=== PATIENT | male | born 1940 | race African-American/Black ===

== ENCOUNTER → 2016-11-24 | Outpatient (CLI) | payer MEDICARE, MEDICAID ==
[~2016-11-24] MED LIST: ALBU2.5V13 NEB; ALBU4TAB6 PO; D-ME473S8 PO; DIGO250T4 PO; DOCU-272 PO; FERR-63 PO; FURO40TA5 PO; IBUP-1510 PO; IOHEXOL-350 100 ML BOTTLE ONE; LISI10TA5 PO; OMEP20CA10 PO; POT25TAB5 PO; ROFL500T PO; SODIUM CHLORIDE 0.9% 10ML VIAL ONE; TERA5CAP4 PO
== END | disposition home or self-care (01) ==
LOC: CT 09:12
PROVIDERS: ATTEND Internal Medicine Gastroenterology
DX: K21.9 Gastro-esophageal reflux disease without esophagitis (principal); K63.5 Polyp of colon; I51.7 Cardiomegaly; K57.90 Diverticulosis of intestine, part unspecified, without perforation or abscess without bleeding; Z90.49 Acquired absence of other specified parts of digestive tract; Z95.0 Presence of cardiac pacemaker
CPT/HCPCS: 74174; A4216; J7040; Q9967

== ENCOUNTER 2018-08-30 15:46 | Inpatient (IN) | payer MEDICARE, MEDICAID ==
[~2018-08-30] VITALS: Ht 182.9 cm; Wt 97.7 kg
[~2018-08-30 15:46] MED LIST changes: -IBUP-1510 PO; +IBUP-2030 PO; -IOHEXOL-350 100 ML BOTTLE ONE; -SODIUM CHLORIDE 0.9% 10ML VIAL ONE
[2018-08-30] MEDS ORDERED: SODIUM CHLORIDE 0.9% 1,000 ML IV ONE (18:01)
[2018-08-30 18:26] LABS: BASOPHILS % 0.7 % (0.0-2.0); EOSINOPHILS % 2.2 % (0.0-5.0); LYMPHOCYTES % 9.9 % (20.0-50.0); MEAN CORPUSCULAR HEMOGLOBIN 30.1 pg (28.0-32.0); MEAN CORPUSCULAR VOLUME 91.6 fL (80.0-94.0); MEAN PLATELET VOLUME 7.2 fl (7.4-10.4); MONOCYTES % 5.7 % (2.0-8.0); NEUTROPHILS % 81.5 % (40.0-76.0); PLATELET 229 x1000/uL (130-400); RED BLOOD CELL COUNT 2.17 mill/uL (4.7-6.1); RED CELL DISTRIBUTION WIDTH 15.8 % (11.6-14.6)
[2018-08-30 18:30] LABS: CHLORIDE 111 mEq/L (98-107)
[2018-08-30 18:31] LABS: HEMATOCRIT. 19.9 % (42.0-52.0); HEMOGLOBIN. 6.5 g/dL (14.0-18.0)
[2018-08-30 18:32] LABS: INR 1.1; PARTIAL THROMBOPLASTIN TIME 24.4 sec (23.4-31.0); PROTHROMBIN TIME 10.9 sec (9.1-11.1)
[2018-08-30] MEDS ORDERED: PANTOPRAZOLE SODIUM 40 MG/VIAL IV ONE (19:15)
[2018-08-30] MEDS ORDERED: ACETAMINOPHEN 325MG TABLET PO PRN (21:45)
[2018-08-30] MEDS ORDERED: ACETAMINOPHEN WITH CODEINE 300/30MG TABLET PO PRN (21:45)
[2018-08-30] MEDS ORDERED: CLONIDINE 0.1MG TABLET PO PRN (21:45)
[2018-08-30] MEDS ORDERED: EPOETIN ALFA 10000UNITS/ML VIAL SUBCUT ONE ×2 (21:45)
[2018-08-30] MEDS ORDERED: DOCUSATE SODIUM 100MG CAPSULE PO PRN (21:45)
[2018-08-30] MEDS ORDERED: EPOETIN ALFA 10000UNITS/ML VIAL SUBCUT SCH (23:30)
[2018-08-30] MEDS: TERAZOSIN HCL 5MG CAPSULE PO SCH (23:47)
[2018-08-31] VITALS (7 sets, daily range): BP systolic 130–150; BP diastolic 43–85
[2018-08-31 07:08] LABS: BASOPHILS % 0.6 % (0.0-2.0); EOSINOPHILS % 2.7 % (0.0-5.0); HEMATOCRIT. 22.1 % (42.0-52.0); HEMOGLOBIN. 7.4 g/dL (14.0-18.0); LYMPHOCYTES % 8.7 % (20.0-50.0); MEAN CORPUSCULAR HEMOGLOBIN 30.5 pg (28.0-32.0); MEAN CORPUSCULAR VOLUME 90.6 fL (80.0-94.0); MONOCYTES % 6.3 % (2.0-8.0); NEUTROPHILS % 81.7 % (40.0-76.0); PLATELET 234 x1000/uL (130-400); RED BLOOD CELL COUNT 2.44 mill/uL (4.7-6.1); RED CELL DISTRIBUTION WIDTH 15.4 % (11.6-14.6)
[2018-08-31 07:13] LABS: PHOSPHORUS 2.8 mg/dL (2.5-4.9)
[2018-08-31] MEDS ORDERED: ASCORBIC ACID 500 MG TABLET PO SCH (09:00)
[2018-08-31] MEDS ORDERED: LISINOPRIL 10MG TABLET PO SCH ×2 (09:00→11:00)
[2018-08-31] MEDS ORDERED: FERROUS SULFATE 325MG TABLET PO SCH (09:00)
[2018-08-31] MEDS ORDERED: FUROSEMIDE 20MG TABLET PO SCH (09:00)
[2018-08-31] MEDS ORDERED: UMECLIDINIUM BROMIDE 1 INH BLST.W.DEV IH SCH (09:00)
[2018-08-31] MEDS ORDERED: POTASSIUM CHLORIDE 20MEQ/PACKET PO SCH ×2 (09:00→11:00)
[2018-08-31] MEDS ORDERED: FLUTICASONE PROPIONATE 50MCG/SPRAY BOTTLE BOTHNSTRLS SCH (09:00)
[2018-08-31] MEDS ORDERED: FLUTICASONE/VILANTEROL 200-25 BLST.W.DEV ORI SCH (09:00)
[2018-08-31] MEDS: ASCORBIC ACID 500 MG TABLET PO SCH ×2 (12:48→21:31)
[2018-08-31] MEDS: FERROUS SULFATE 325MG TABLET PO SCH ×2 (12:48→18:00)
[2018-08-31] MEDS: FUROSEMIDE 40MG TABLET PO SCH (12:48)
[2018-08-31] MEDS ORDERED: MECL-127 MT (13:48)
[2018-08-31] MEDS ORDERED: VIT1CAPS22 MT (14:05)
[2018-08-31] MEDS ORDERED: ROFL500T MT (14:05)
[2018-08-31] MEDS ORDERED: ALBU4TAB6 MT (14:05)
[2018-08-31] MEDS ORDERED: FLUT1BLS3 IH (14:09)
[2018-08-31] MEDS: FLUTICASONE PROPIONATE 50MCG/SPRAY BOTTLE BOTHNSTRLS SCH (15:01)
[2018-08-31] MEDS: FLUTICASONE/VILANTEROL 200-25 BLST.W.DEV ORI SCH (15:04)
[2018-08-31] MEDS: UMECLIDINIUM BROMIDE 1 INH BLST.W.DEV IH SCH (15:05)
[2018-08-31] MEDS ORDERED: FUROSEMIDE 40MG TABLET PO SCH ×2 (17:00)
[2018-08-31] MEDS ORDERED: DIGOXIN 250MCG TABLET PO SCH ×2 (18:00)
[2018-08-31] MEDS: CELECOXIB 200MG CAPSULE PO SCH (18:00)
[2018-08-31] MEDS: PANTOPRAZOLE SODIUM 40 MG/VIAL IV SCH (18:00)
[2018-08-31] MEDS: TERAZOSIN HCL 5MG CAPSULE PO SCH (22:16)
[2018-09-01] VITALS: BP 154/88
[2018-09-01 01:17] LABS: HEMATOCRIT. 25.6 % (42.0-52.0); HEMOGLOBIN. 8.5 g/dL (14.0-18.0); MEAN CORPUSCULAR HEMOGLOBIN 29.5 pg (28.0-32.0); MEAN CORPUSCULAR VOLUME 89.2 fL (80.0-94.0); MEAN PLATELET VOLUME 8.4 fl (7.4-10.4); PLATELET 237 x1000/uL (130-400); RED BLOOD CELL COUNT 2.86 mill/uL (4.7-6.1); RED CELL DISTRIBUTION WIDTH 17.6 % (11.6-14.6); TOTAL IRON BINDING CAPACITY 279 ug/dL (250-450)
[2018-09-01 02:24] LABS: ATYPICAL LYMPHOCYTES 1
[2018-09-01 02:25] LABS: PLATELET ESTIMATE NORMAL
[2018-09-01 04:00] VITALS: BP 124/80
[2018-09-01] MEDS: CELECOXIB 200MG CAPSULE PO SCH (05:13)
[2018-09-01 07:09] LABS: HEMATOCRIT. 27.6 % (42.0-52.0); MEAN CORPUSCULAR HEMOGLOBIN 29.2 pg (28.0-32.0); MEAN CORPUSCULAR VOLUME 89.5 fL (80.0-94.0); PLATELET 272 x1000/uL (130-400); RED BLOOD CELL COUNT 3.08 mill/uL (4.7-6.1); RED CELL DISTRIBUTION WIDTH 18.3 % (11.6-14.6)
[2018-09-01 08:00] VITALS: BP 145/61
[2018-09-01] MEDS: PANTOPRAZOLE SODIUM 40 MG/VIAL IV SCH (09:13)
[2018-09-01] MEDS: ASCORBIC ACID 500 MG TABLET PO SCH (09:14)
[2018-09-01] MEDS: FERROUS SULFATE 325MG TABLET PO SCH (09:14)
[2018-09-01] MEDS: FUROSEMIDE 40MG TABLET PO SCH (09:14)
[2018-09-01] MEDS: FLUTICASONE PROPIONATE 50MCG/SPRAY BOTTLE BOTHNSTRLS SCH (09:17)
[2018-09-01] MEDS: UMECLIDINIUM BROMIDE 1 INH BLST.W.DEV IH SCH (09:49)
[2018-09-01] MEDS: FLUTICASONE/VILANTEROL 200-25 BLST.W.DEV ORI SCH (09:49)
[2018-09-01 10:27] VITALS: BP 132/60
[2018-09-01] MEDS ORDERED: HALOPERIDOL LACTATE 5MG/ML VIAL IM NR (10:30)
[2018-09-01 14:15] LABS: PLATELET ESTIMATE NORMAL
== END 2018-09-01 11:50 | disposition home or self-care (01) | DRG 378 ==
LOC: ER 15:46 → 8WST 18:43 → EDBEDREQ 18:47 → ENRESERV 08-31 08:54 → ER 08-31 10:47
PROVIDERS: ADMIT Internal Medicine Pulmonary Disease; ATTEND Internal Medicine Pulmonary Disease
PROC: 30233N1 Transfusion of Nonautologous Red Blood Cells into Peripheral Vein, Percutaneous Approach (ICD-10-PCS; principal; 2018-08-30)
DX: K92.2 Gastrointestinal hemorrhage, unspecified (principal); E87.0 Hyperosmolality and hypernatremia; I13.0 Hypertensive heart and chronic kidney disease with heart failure and stage 1 through stage 4 chronic kidney disease, or unspecified chronic kidney disease; I50.32 Chronic diastolic (congestive) heart failure; D50.0 Iron deficiency anemia secondary to blood loss (chronic); I48.2 Chronic atrial fibrillation; J44.9 Chronic obstructive pulmonary disease, unspecified; D12.6 Benign neoplasm of colon, unspecified; G89.29 Other chronic pain; I25.10 Atherosclerotic heart disease of native coronary artery without angina pectoris; J30.1 Allergic rhinitis due to pollen; N28.9 Disorder of kidney and ureter, unspecified; Z87.891 Personal history of nicotine dependence; Z90.49 Acquired absence of other specified parts of digestive tract; Z95.810 Presence of automatic (implantable) cardiac defibrillator; Z89.201 Acquired absence of right upper limb, unspecified level; N18.3 Chronic kidney disease, stage 3 (moderate)
CPT/HCPCS: 36415; 71045; 80048; 80162; 82270; 82728; 83540; 83550; 83735; 84100; 84484; 86850; 86900; 86920; 93005; 93306; 96374; 99285; C9113; J0885; J1630; J7030; J7040; J7050; P9016

== ENCOUNTER 2019-04-08 03:44 | Inpatient (IN) | payer MEDICARE, MEDICAID ==
[~2019-04-08] VITALS: Ht 198.1 cm; Wt 95.7 kg
[~2019-04-08 03:44] MED LIST changes: +ALBU4TAB6 MT; +C,E,1CAP2 MT; +FLUT1BLS3 IH; +MECL-127 MT; -OMEP20CA10 PO; +OMEP20CA5 PO; +ROFL500T MT; -ROFL500T PO
[2019-04-08] MEDS ORDERED: MORPHINE SULFATE 4 MG/ML CPJ (NOT FOR IM USE) IV STA (04:44)
[2019-04-08] MEDS ORDERED: ONDANSETRON HCL 4MG/2ML INJ IV STA (04:44)
[2019-04-08 05:32] LABS: HEMATOCRIT. 30.5 % (42.0-52.0); HEMOGLOBIN. 9.7 g/dL (14.0-18.0); MEAN CORPUSCULAR HEMOGLOBIN 31.1 pg (28.0-32.0); MEAN CORPUSCULAR VOLUME 97.6 fL (80.0-94.0); MEAN PLATELET VOLUME 7.6 fl (7.4-10.4); PLATELET 193 x1000/uL (130-400); RED BLOOD CELL COUNT 3.13 mill/uL (4.7-6.1); RED CELL DISTRIBUTION WIDTH 18.5 % (11.6-14.6)
[2019-04-08 05:42] LABS: CHLORIDE 110 mEq/L (98-107)
[2019-04-08] MEDS ORDERED: ASPIRIN 81MG TABLET PO ONE (06:15)
[2019-04-08 06:21] LABS: PLATELET ESTIMATE NORMAL
[2019-04-08] MEDS ORDERED: MORPHINE SULFATE 4 MG/ML CPJ (NOT FOR IM USE) IV ONE (07:30)
[2019-04-08] MEDS ORDERED: ONDANSETRON HCL 4MG/2ML INJ IV ONE (07:30)
[2019-04-08 07:36] LABS: CLARITY URINE CLEAR (CLEAR); COLOR URINE YELLOW (YELLOW); KETONES URINE NEGATIVE (NEGATIVE); LEUKOCYTE ESTERASE URINE NEGATIVE (NEGATIVE); NITRITE URINE NEGATIVE (NEGATIVE); OCCULT BLOOD URINE NEGATIVE (NEGATIVE); PROTEIN URINE TRACE (NEGATIVE); SPECIFIC GRAVITY URINE 1.015 (1.005-1.030); UROBILINOGEN URINE 0.2 E.U./dL (0.2-1.0)
[2019-04-08 14:00] VITALS: BP 145/56
[2019-04-08 16:00] VITALS: BP 117/60
[2019-04-08] MEDS ORDERED: MECLIZINE 25MG TABLET PO PRN (16:45)
[2019-04-08] MEDS: POTASSIUM CHLORIDE 20MEQ TABLET SR PO SCH (17:42)
[2019-04-08] MEDS: FUROSEMIDE 40MG TABLET PO SCH (17:42)
[2019-04-08] MEDS: FERROUS SULFATE 325MG TABLET PO SCH (17:42)
[2019-04-08] MEDS: LISINOPRIL 10MG TABLET PO SCH (17:43)
[2019-04-08] MEDS: DIGOXIN 250MCG TABLET PO SCH (17:43)
[2019-04-08] MEDS ORDERED: BUDESONIDE 0.5MG/2ML NEB HHN SCH (18:00)
[2019-04-08] MEDS: DOCUSATE SODIUM 100MG CAPSULE PO SCH (18:12)
[2019-04-08 20:00] VITALS: BP 150/53
[2019-04-08 20:29] VITALS: BP 150/53
[2019-04-08] MEDS: OMEPRAZOLE 20MG CAPSULE EXTENDED RELEASE PO SCH (20:53)
[2019-04-08] MEDS: TERAZOSIN HCL 5MG CAPSULE PO SCH (20:54)
[2019-04-09] VITALS (7 sets, daily range): BP systolic 108–142; BP diastolic 49–90
[2019-04-09] MEDS: FERROUS SULFATE 325MG TABLET PO SCH ×3 (06:34→18:58)
[2019-04-09] MEDS: OMEPRAZOLE 20MG CAPSULE EXTENDED RELEASE PO SCH ×2 (06:34→20:04)
[2019-04-09] MEDS: DOCUSATE SODIUM 100MG CAPSULE PO SCH (08:59)
[2019-04-09] MEDS: LISINOPRIL 10MG TABLET PO SCH (09:00)
[2019-04-09] MEDS: FUROSEMIDE 40MG TABLET PO SCH (09:00)
[2019-04-09] MEDS: POTASSIUM CHLORIDE 20MEQ TABLET SR PO SCH (09:00)
[2019-04-09] MEDS: HYDROCODONE/APAP 7.5/325MG 1 TAB TABLET PO PRN (14:36)
[2019-04-09] MEDS ORDERED: CLONIDINE 0.1MG TABLET PO PRN (15:15)
[2019-04-09] MEDS: FUROSEMIDE 40MG/4ML VIAL IVP SCH (18:57)
[2019-04-09] MEDS: DIGOXIN 250MCG TABLET PO SCH (18:58)
[2019-04-09] MEDS: TERAZOSIN HCL 5MG CAPSULE PO SCH (20:03)
[2019-04-09] MEDS ORDERED: IPRATROPIUM/ALBUTEROL 0.5-3(2.5)MG/3ML NEB HHN PRN (23:30)
[2019-04-10 00:37] VITALS: BP 135/56
[2019-04-10] MEDS: HYDROCODONE/APAP 7.5/325MG 1 TAB TABLET PO PRN (02:36)
[2019-04-10 04:00] VITALS: BP 156/54
[2019-04-10 07:57] LABS: HEMATOCRIT. 30.2 % (42.0-52.0); HEMOGLOBIN. 9.8 g/dL (14.0-18.0); MEAN CORPUSCULAR HEMOGLOBIN 31.4 pg (28.0-32.0); MEAN CORPUSCULAR VOLUME 97.1 fL (80.0-94.0); MEAN PLATELET VOLUME 8.3 fl (7.4-10.4); PLATELET 207 x1000/uL (130-400); RED BLOOD CELL COUNT 3.11 mill/uL (4.7-6.1); RED CELL DISTRIBUTION WIDTH 16.8 % (11.6-14.6)
[2019-04-10 08:00] VITALS: BP_SYST 115; BP_SYST 154; BP_DIAS 60; BP_DIAS 84
[2019-04-10 08:17] LABS: CHLORIDE 108 mEq/L (98-107)
[2019-04-10 08:31] LABS: PHOSPHORUS 2.9 mg/dL (2.5-4.9)
[2019-04-10 08:32] LABS: CREATINE KINASE 362 IU/L (39-308); LDL CHOLESTEROL 54 mg/dL (5-100)
[2019-04-10 08:33] LABS: CREATINE KINASE MB FRACTION 2.6 ng/mL (0.5-3.6)
[2019-04-10 08:33] LABS: *AMPHETAMINES SCREEN URINE NEGATIVE (NEGATIVE); *BARBITURATES SCREEN URINE NEGATIVE (NEGATIVE); *BENZODIAZEPINES SCREEN URINE NEGATIVE (NEGATIVE); *COCAINE SCREEN URINE NEGATIVE (NEGATIVE); CANNABINOID URINE SCREEN NEGATIVE (NEGATIVE); METHADONE URINE SCREEN NEGATIVE (NEGATIVE); OPIATES URINE SCREEN PRESUMTIVE POSITIVE (NEGATIVE); PHENCYCLIDINE URINE SCREEN NEGATIVE (NEGATIVE)
[2019-04-10 08:34] LABS: HDL CHOLESTEROL 51 mg/dL (40-59)
[2019-04-10] MEDS ORDERED: FAMOTIDINE 20MG TABLET PO SCH (09:00)
[2019-04-10] MEDS ORDERED: UMECLIDINIUM BROMIDE 1 INH BLST.W.DEV IH SCH (09:00)
[2019-04-10] MEDS ORDERED: FLUTICASONE/VILANTEROL 200-25 BLST.W.DEV ORI SCH (09:00)
[2019-04-10] MEDS: FUROSEMIDE 40MG/4ML VIAL IVP SCH (09:57)
[2019-04-10] MEDS: POTASSIUM CHLORIDE 20MEQ TABLET SR PO SCH (09:57)
[2019-04-10] MEDS: LISINOPRIL 10MG TABLET PO SCH (10:00)
[2019-04-10] MEDS: FAMOTIDINE 20MG TABLET PO SCH (10:00)
[2019-04-10] MEDS: DOCUSATE SODIUM 100MG CAPSULE PO SCH (10:00)
[2019-04-10] MEDS: FERROUS SULFATE 325MG TABLET PO SCH ×3 (10:01→18:19)
[2019-04-10 12:00] VITALS: BP 144/58
[2019-04-10] MEDS: AMLODIPINE 5MG TABLET PO SCH ×3 (14:15→21:23)
[2019-04-10 16:00] VITALS: BP 150/58
[2019-04-10 17:36] LABS: PLATELET ESTIMATE NORMAL
[2019-04-10] MEDS: DIGOXIN 250MCG TABLET PO SCH (18:19)
[2019-04-10 20:00] VITALS: BP 140/60
[2019-04-10] MEDS: TERAZOSIN HCL 5MG CAPSULE PO SCH (21:22)
[2019-04-11] VITALS: BP 135/59
[2019-04-11] MEDS: HYDROCODONE/APAP 7.5/325MG 1 TAB TABLET PO PRN ×2 (01:00→03:10)
[2019-04-11 04:00] VITALS: BP 140/62
[2019-04-11 07:53] LABS: HEMATOCRIT. 29.8 % (42.0-52.0); HEMOGLOBIN. 9.5 g/dL (14.0-18.0); MEAN CORPUSCULAR HEMOGLOBIN 31.3 pg (28.0-32.0); MEAN PLATELET VOLUME 8.3 fl (7.4-10.4); PLATELET 213 x1000/uL (130-400); RED BLOOD CELL COUNT 3.04 mill/uL (4.7-6.1); RED CELL DISTRIBUTION WIDTH 16.5 % (11.6-14.6)
[2019-04-11] MEDS ORDERED: HALOPERIDOL LACTATE 5MG/ML VIAL IM PRN (08:05)
[2019-04-11] MEDS: FUROSEMIDE 40MG/4ML VIAL IVP SCH (10:08)
[2019-04-11] MEDS: DOCUSATE SODIUM 100MG CAPSULE PO SCH (10:08)
[2019-04-11] MEDS: FERROUS SULFATE 325MG TABLET PO SCH ×3 (10:08→18:38)
[2019-04-11] MEDS: FAMOTIDINE 20MG TABLET PO SCH (10:08)
[2019-04-11] MEDS: LISINOPRIL 10MG TABLET PO SCH (10:08)
[2019-04-11] MEDS: POTASSIUM CHLORIDE 20MEQ TABLET SR PO SCH (10:08)
[2019-04-11] MEDS: AMLODIPINE 5MG TABLET PO SCH ×2 (10:09→21:31)
[2019-04-11] MEDS ORDERED: POTASSIUM CHLORIDE 20MEQ TABLET SR PO SCH (11:45)
[2019-04-11 14:29] LABS: PLATELET ESTIMATE NORMAL
[2019-04-11] MEDS: DIGOXIN 250MCG TABLET PO SCH (18:38)
[2019-04-11 20:19] VITALS: BP 138/51
[2019-04-11] MEDS ORDERED: NIFE90TA2 PO (20:23)
[2019-04-11] MEDS ORDERED: FAMO20TA8 PO (20:24)
[2019-04-11] MEDS ORDERED: MECL-109 PO (20:25)
[2019-04-11] MEDS ORDERED: FLUT1BLS3 INH (20:28)
[2019-04-11] MEDS ORDERED: DOCU-150 PO (20:33)
[2019-04-11] MEDS ORDERED: TOPUD PO (20:36)
[2019-04-11] MEDS ORDERED: ACETAMINOPHEN PO (20:36)
[2019-04-11] MEDS ORDERED: CODEINE PO (20:36)
[2019-04-11] MEDS ORDERED: FLUT9.9S BOTHNSTRLS (20:37)
[2019-04-11] MEDS ORDERED: POTA-79 PO (20:38)
[2019-04-11] MEDS ORDERED: TERA10CA4 PO (20:40)
[2019-04-11] MEDS ORDERED: ROFL500T PO (20:42)
[2019-04-11 20:43] VITALS: BP 138/51
[2019-04-11] MEDS ORDERED: EPOETIN ALFA 4000UNITS/ML VIAL SUBCUT SCH (21:00)
[2019-04-11] MEDS ORDERED: EPOETIN ALFA 10000UNITS/ML VIAL SUBCUT SCH ×2 (21:00)
[2019-04-11] MEDS: TERAZOSIN HCL 5MG CAPSULE PO SCH (21:31)
== END 2019-04-11 22:30 | disposition home or self-care (01) | DRG 291 ==
LOC: ER 03:44 → 6WST 06:57 → EDBEDREQTM 07:00 → EDBEDREQ 07:00 → ENRESERV 13:00
PROVIDERS: ADMIT Internal Medicine Pulmonary Disease; ATTEND Internal Medicine Pulmonary Disease
DX: I13.0 Hypertensive heart and chronic kidney disease with heart failure and stage 1 through stage 4 chronic kidney disease, or unspecified chronic kidney disease (principal); I50.33 Acute on chronic diastolic (congestive) heart failure; J44.1 Chronic obstructive pulmonary disease with (acute) exacerbation; N17.9 Acute kidney failure, unspecified; M47.816 Spondylosis without myelopathy or radiculopathy, lumbar region; I42.8 Other cardiomyopathies; I49.5 Sick sinus syndrome; I48.91 Unspecified atrial fibrillation; D12.6 Benign neoplasm of colon, unspecified; D50.0 Iron deficiency anemia secondary to blood loss (chronic); E87.6 Hypokalemia; G89.29 Other chronic pain; I27.20 Pulmonary hypertension, unspecified; K21.9 Gastro-esophageal reflux disease without esophagitis; N20.0 Calculus of kidney; N40.0 Benign prostatic hyperplasia without lower urinary tract symptoms; M41.9 Scoliosis, unspecified; F03.90 Unspecified dementia, unspecified severity, without behavioral disturbance, psychotic disturbance, mood disturbance, and anxiety; M48.00 Spinal stenosis, site unspecified; N18.3 Chronic kidney disease, stage 3 (moderate); J30.1 Allergic rhinitis due to pollen; Z86.010 Personal history of colon polyps; Z90.49 Acquired absence of other specified parts of digestive tract; Z95.810 Presence of automatic (implantable) cardiac defibrillator; Z87.891 Personal history of nicotine dependence; Z90.2 Acquired absence of lung [part of]; Z79.899 Other long term (current) drug therapy; Z88.8 Allergy status to other drugs, medicaments and biological substances
CPT/HCPCS: 36415; 71045; 72100; 74176; 80048; 80061; 80305; 81003; 82550; 82553; 83605; 83735; 83880; 84100; 84484; 85379; 93005; 93306; 94640; 99285; J0885; J1630; J1940; J2270; J2405

== ENCOUNTER 2019-04-16 15:08 | Emergency (ER) | payer MEDICARE, MEDICAID ==
[~2019-04-16] VITALS: Ht 198.1 cm; Wt 109.0 kg
[~2019-04-16 15:08] MED LIST changes: +ACETAMINOPHEN PO; -ALBU4TAB6 MT; -ALBU4TAB6 PO; -C,E,1CAP2 MT; +CODEINE PO; -D-ME473S8 PO; +DOCU-150 PO; -DOCU-272 PO; +FAMO20TA8 PO; -FLUT1BLS3 IH; +FLUT1BLS3 INH; +FLUT9.9S BOTHNSTRLS; -IBUP-2030 PO; +MECL-109 PO; -MECL-127 MT; +NIFE90TA2 PO; -OMEP20CA5 PO; -POT25TAB5 PO; +POTA-79 PO; +TERA10CA4 PO; -TERA5CAP4 PO; +TOPUD PO
[2019-04-16] MEDS ORDERED: ONDANSETRON HCL 4MG/2ML INJ IV STA (16:02)
[2019-04-16] MEDS ORDERED: SODIUM CHLORIDE 0.9% 1,000 ML IV ONE (16:02)
[2019-04-16] MEDS ORDERED: MORPHINE SULFATE 4 MG/ML CPJ (NOT FOR IM USE) IV STA (16:02)
[2019-04-16 17:32] LABS: HEMATOCRIT. 34.5 % (42.0-52.0); HEMOGLOBIN. 11.2 g/dL (14.0-18.0); MEAN CORPUSCULAR HEMOGLOBIN 31.1 pg (28.0-32.0); MEAN CORPUSCULAR VOLUME 95.8 fL (80.0-94.0); PLATELET 307 x1000/uL (130-400); RED BLOOD CELL COUNT 3.61 mill/uL (4.7-6.1); RED CELL DISTRIBUTION WIDTH 15.7 % (11.6-14.6)
[2019-04-16 17:33] LABS: CLARITY URINE CLEAR (CLEAR); COLOR URINE YELLOW (YELLOW); KETONES URINE NEGATIVE (NEGATIVE); LEUKOCYTE ESTERASE URINE NEGATIVE (NEGATIVE); NITRITE URINE NEGATIVE (NEGATIVE); OCCULT BLOOD URINE NEGATIVE (NEGATIVE); PROTEIN URINE NEGATIVE (NEGATIVE); SPECIFIC GRAVITY URINE 1.011 (1.005-1.030)
[2019-04-16 17:37] LABS: INR 1.2
[2019-04-16 17:47] LABS: CHLORIDE 110 mEq/L (98-107); PLATELET ESTIMATE NORMAL
[2019-04-16 23:01] VITALS: BP 112/63
== END 2019-04-16 23:03 | disposition home or self-care (01) ==
LOC: ER 15:08 → CANBEDREQ 23:15
DX: R10.31 Right lower quadrant pain (principal); R94.39 Abnormal result of other cardiovascular function study; Z95.0 Presence of cardiac pacemaker
CPT/HCPCS: 36415; 71045; 74176; 80053; 81003; 83690; 84484; 85025; 85610; 93005; 96374; 96375; 99284; J2270; J2405; J7030

== ENCOUNTER 2020-01-14 15:36 | Inpatient (IN) | payer MEDICARE, MEDICAID ==
[~2020-01-14] VITALS: Ht 198.1 cm; Wt 83.5 kg
[~2020-01-14 15:36] MED LIST changes: -MECL-109 PO; +MECL-159 PO
[2020-01-14 17:31] LABS: HEMATOCRIT. 52.3 % (42.0-52.0); HEMOGLOBIN. 16.9 g/dL (14.0-18.0); MEAN CORPUSCULAR HEMOGLOBIN 28.9 pg (28.0-32.0); MEAN CORPUSCULAR VOLUME 89.5 fL (80.0-94.0); MEAN PLATELET VOLUME 7.2 fl (7.4-10.4); PLATELET 253 x1000/uL (130-400); RED BLOOD CELL COUNT 5.84 mill/uL (4.7-6.1)
[2020-01-14 17:36] LABS: CHLORIDE 108 mEq/L (98-107)
[2020-01-14 17:53] LABS: PLATELET ESTIMATE NORMAL
[2020-01-14] MEDS ORDERED: INSULIN REGULAR (HUMULIN R) 300UNITS/3ML IV ONE (18:30)
[2020-01-14] MEDS ORDERED: SODIUM BICARBONATE 8.4% 1 MEQ/ML 50ML SYR IV ONE (18:30)
[2020-01-14] MEDS ORDERED: SODIUM POLYSTYRENE SULFONATE 15 G/60 ML BOT PO ONE (18:30)
[2020-01-14] MEDS ORDERED: ALBUTEROL (0.083%) 2.5MG/3ML NEB HHN ONE (18:30)
[2020-01-14] MEDS ORDERED: DEXTROSE 50% WATER 50ML SYRINGE IV ONE (18:30)
[2020-01-14] MEDS ORDERED: SODIUM CHLORIDE 0.9% 1000ML BAG (SEPSIS BOLUS) IV ONE (18:45)
[2020-01-14] MEDS ORDERED: CEFTRIAXONE 1 G PREMIX 50 ML IV ONE (19:00)
[2020-01-14 19:07] LABS: INR 1.2; PROTHROMBIN TIME 12.7 sec (9.6-11.0)
[2020-01-14 21:59] LABS: CLARITY URINE CLEAR (CLEAR); COLOR URINE YELLOW (YELLOW); KETONES URINE NEGATIVE (NEGATIVE); LEUKOCYTE ESTERASE URINE NEGATIVE (NEGATIVE); NITRITE URINE NEGATIVE (NEGATIVE); OCCULT BLOOD URINE NEGATIVE (NEGATIVE); PROTEIN URINE NEGATIVE (NEGATIVE); SPECIFIC GRAVITY URINE 1.014 (1.005-1.030); UROBILINOGEN URINE 0.2 E.U./dL (0.2-1.0)
[2020-01-15 05:12] LABS: HEMATOCRIT. 47.3 % (42.0-52.0); HEMOGLOBIN. 15.2 g/dL (14.0-18.0); MEAN CORPUSCULAR HEMOGLOBIN 28.7 pg (28.0-32.0); MEAN CORPUSCULAR VOLUME 89.5 fL (80.0-94.0); MEAN PLATELET VOLUME 7.7 fl (7.4-10.4); PLATELET 218 x1000/uL (130-400); RED BLOOD CELL COUNT 5.29 mill/uL (4.7-6.1); RED CELL DISTRIBUTION WIDTH 17.2 % (11.6-14.6)
[2020-01-15 05:14] LABS: PHOSPHORUS 4.4 mg/dL (2.5-4.9)
[2020-01-15 06:37] LABS: PLATELET ESTIMATE NORMAL
[2020-01-15] MEDS ORDERED: ACETAMINOPHEN WITH CODEINE 300/30MG TABLET PO PRN (11:15)
[2020-01-15] MEDS: FAMOTIDINE 20MG TABLET PO SCH (11:34)
[2020-01-15] MEDS: DOCUSATE SODIUM 100MG CAPSULE PO SCH (11:34)
[2020-01-15] MEDS: NIFEDIPINE XL 30MG TAB PO SCH (11:34)
[2020-01-15] MEDS: ASCORBIC ACID 500 MG TABLET PO SCH ×2 (11:35→18:06)
[2020-01-15 14:00] VITALS: BP 141/55
[2020-01-15] MEDS ORDERED: DEXT 5%/0.45% NACL 1000ML 1,000 ML IV ONE (14:00)
[2020-01-15] MEDS ORDERED: COLCHICINE 0.6MG TABLET PO SCH (14:00)
[2020-01-15] MEDS: FERROUS SULFATE 325MG TABLET PO SCH ×2 (14:23→18:06)
[2020-01-15] MEDS: SODIUM BICARBONATE 650 MG TABLET PO SCH ×2 (14:23→21:40)
[2020-01-15] MEDS ORDERED: SODIUM POLYSTYRENE SULFONATE 15 G/60 ML BOT PO SCH (15:00)
[2020-01-15 16:00] VITALS: BP 136/58
[2020-01-15] MEDS ORDERED: METHYLPREDNISOLONE SOD SUCC 125 MG/2 ML VIAL IV NR (17:00)
[2020-01-15] MEDS: UMECLIDINIUM BROMIDE 1 INH BLST.W.DEV IH SCH ×2 (17:12→20:17)
[2020-01-15 20:49] VITALS: BP 147/68
[2020-01-15] MEDS ORDERED: TERAZOSIN HCL 5MG CAPSULE PO SCH (21:00)
[2020-01-16 00:15] VITALS: BP 165/57
[2020-01-16] MEDS ORDERED: METHYLPREDNISOLONE SOD SUCC 40 MG/ML VIAL IV SCH (01:00)
[2020-01-16 04:52] VITALS: BP 148/63
[2020-01-16] MEDS: SODIUM BICARBONATE 650 MG TABLET PO SCH ×3 (05:08→21:30)
[2020-01-16 05:40] LABS: PHOSPHORUS 3.8 mg/dL (2.5-4.9)
[2020-01-16 06:20] LABS: HEMATOCRIT. 50.3 % (42.0-52.0); HEMOGLOBIN. 16.6 g/dL (14.0-18.0); MEAN CORPUSCULAR HEMOGLOBIN 29.4 pg (28.0-32.0); MEAN CORPUSCULAR VOLUME 89.1 fL (80.0-94.0); MEAN PLATELET VOLUME 7.8 fl (7.4-10.4); PLATELET 220 x1000/uL (130-400); RED BLOOD CELL COUNT 5.65 mill/uL (4.7-6.1); RED CELL DISTRIBUTION WIDTH 16.8 % (11.6-14.6)
[2020-01-16] MEDS: METHYLPREDNISOLONE SOD SUCC 40 MG/ML VIAL IV SCH ×3 (09:57→21:31)
[2020-01-16] MEDS: FAMOTIDINE 20MG TABLET PO SCH ×2 (09:57→11:05)
[2020-01-16 10:00] VITALS: BP 152/72
[2020-01-16] MEDS: DEXT 5%/0.45% NACL 1000ML 1,000 ML IV SCH ×2 (10:19→21:55)
[2020-01-16] MEDS ORDERED: SODIUM POLYSTYRENE SULFONATE 15 G/60 ML BOT PO SCH (11:00)
[2020-01-16] MEDS: DOCUSATE SODIUM 100MG CAPSULE PO SCH (11:05)
[2020-01-16] MEDS: ASCORBIC ACID 500 MG TABLET PO SCH ×2 (11:05→17:32)
[2020-01-16] MEDS: NIFEDIPINE XL 30MG TAB PO SCH (11:05)
[2020-01-16] MEDS: ALLOPURINOL 100 MG TABLET PO SCH (11:06)
[2020-01-16] MEDS: FERROUS SULFATE 325MG TABLET PO SCH ×3 (11:06→17:32)
[2020-01-16] MEDS: FLUTICASONE/VILANTEROL 200-25 BLST.W.DEV ORI SCH (13:05)
[2020-01-16] MEDS: UMECLIDINIUM BROMIDE 1 INH BLST.W.DEV IH SCH (13:06)
[2020-01-16 13:38] LABS: PLATELET ESTIMATE NORMAL
[2020-01-16 16:30] VITALS: BP 158/76
[2020-01-16 20:12] VITALS: BP 163/71
[2020-01-16] MEDS ORDERED: TERAZOSIN HCL 1MG CAPSULE PO SCH (21:00)
[2020-01-16] MEDS ORDERED: TERAZOSIN HCL 5MG CAPSULE PO SCH (21:00)
[2020-01-17] VITALS (8 sets, daily range): BP systolic 133–158; BP diastolic 61–74
[2020-01-17] MEDS: SODIUM BICARBONATE 650 MG TABLET PO SCH ×2 (05:25→14:56)
[2020-01-17] MEDS: METHYLPREDNISOLONE SOD SUCC 40 MG/ML VIAL IV SCH ×2 (05:25→14:56)
[2020-01-17] MEDS: ASCORBIC ACID 500 MG TABLET PO SCH ×2 (09:28→18:34)
[2020-01-17] MEDS: NIFEDIPINE XL 30MG TAB PO SCH (09:28)
[2020-01-17] MEDS: ALLOPURINOL 100 MG TABLET PO SCH (09:28)
[2020-01-17] MEDS: FERROUS SULFATE 325MG TABLET PO SCH ×3 (09:28→18:34)
[2020-01-17] MEDS: DOCUSATE SODIUM 100MG CAPSULE PO SCH (09:28)
[2020-01-17] MEDS: UMECLIDINIUM BROMIDE 1 INH BLST.W.DEV IH SCH (09:31)
[2020-01-17] MEDS: FLUTICASONE/VILANTEROL 200-25 BLST.W.DEV ORI SCH (09:31)
[2020-01-17 12:11] LABS: HEMOGLOBIN. 16.6 g/dL (14.0-18.0); MEAN CORPUSCULAR HEMOGLOBIN 28.8 pg (28.0-32.0); MEAN CORPUSCULAR VOLUME 88.3 fL (80.0-94.0); MEAN PLATELET VOLUME 7.5 fl (7.4-10.4); PLATELET 195 x1000/uL (130-400); RED BLOOD CELL COUNT 5.78 mill/uL (4.7-6.1)
[2020-01-17 13:49] LABS: PLATELET ESTIMATE NORMAL
[2020-01-17] MEDS: DEXT 5%/0.45% NACL 1000ML 1,000 ML IV SCH (15:12)
== END 2020-01-17 19:55 | disposition home health service (06) | DRG 554 ==
LOC: ER 15:36 → 6WST 18:38 → EDBEDREQTM 18:50 → EDBEDREQ 18:50 → ENRESERV 01-15 11:58 → 6WST 01-16 06:00
PROVIDERS: ADMIT Internal Medicine Pulmonary Disease; ATTEND Internal Medicine Pulmonary Disease
DX: M10.032 Idiopathic gout, left wrist (principal); K92.2 Gastrointestinal hemorrhage, unspecified; I48.20 Chronic atrial fibrillation, unspecified; I50.32 Chronic diastolic (congestive) heart failure; L03.114 Cellulitis of left upper limb; N17.9 Acute kidney failure, unspecified; N18.3 Chronic kidney disease, stage 3 (moderate); E87.5 Hyperkalemia; J44.9 Chronic obstructive pulmonary disease, unspecified; I49.9 Cardiac arrhythmia, unspecified; I13.10 Hypertensive heart and chronic kidney disease without heart failure, with stage 1 through stage 4 chronic kidney disease, or unspecified chronic kidney disease; K21.9 Gastro-esophageal reflux disease without esophagitis; D50.0 Iron deficiency anemia secondary to blood loss (chronic); I49.5 Sick sinus syndrome; D12.6 Benign neoplasm of colon, unspecified; K57.90 Diverticulosis of intestine, part unspecified, without perforation or abscess without bleeding; J30.1 Allergic rhinitis due to pollen; M19.90 Unspecified osteoarthritis, unspecified site; Z86.010 Personal history of colon polyps; Z87.891 Personal history of nicotine dependence; Z95.810 Presence of automatic (implantable) cardiac defibrillator; Z90.49 Acquired absence of other specified parts of digestive tract; Z89.201 Acquired absence of right upper limb, unspecified level
CPT/HCPCS: 36415; 71045; 73130; 80048; 80053; 81003; 82962; 83605; 83735; 83970; 84100; 84132; 84145; 84550; 85025; 93005; 93971; 94644; 99285; J0696; J1815; J2920; J2930; J3490; J7030

== ENCOUNTER 2020-02-15 12:15 | Inpatient (IN) | payer MEDICARE, MEDICAID ==
[~2020-02-15] VITALS: Ht 198.1 cm; Wt 85.7 kg
[~2020-02-15 12:15] MED LIST changes: -DIGO250T4 PO; -FURO40TA5 PO; -POTA-79 PO
[2020-02-15 13:10] LABS: BASOPHILS % 0.6 % (0.0-2.0); EOSINOPHILS % 1.6 % (0.0-5.0); HEMATOCRIT. 44.5 % (42.0-52.0); HEMOGLOBIN. 14.3 g/dL (14.0-18.0); LYMPHOCYTES % 7.9 % (20.0-50.0); MEAN CORPUSCULAR HEMOGLOBIN 27.1 pg (28.0-32.0); MEAN CORPUSCULAR VOLUME 84.2 fL (80.0-94.0); MEAN PLATELET VOLUME 7.8 fl (7.4-10.4); MONOCYTES % 5.6 % (2.0-8.0); NEUTROPHILS % 84.3 % (40.0-76.0); PLATELET 216 x1000/uL (130-400); RED BLOOD CELL COUNT 5.28 mill/uL (4.7-6.1); RED CELL DISTRIBUTION WIDTH 18.9 % (11.6-14.6)
[2020-02-15 13:17] LABS: CHLORIDE 108 mEq/L (98-107)
[2020-02-15] MEDS ORDERED: FUROSEMIDE 40MG/4ML VIAL IVP ONE (13:30)
[2020-02-15] MEDS ORDERED: ASPIRIN 325MG EC TABLET PO ONE (13:30)
[2020-02-15 20:51] LABS: METHADONE URINE SCREEN NEGATIVE (NEGATIVE)
[2020-02-15 20:52] LABS: *AMPHETAMINES SCREEN URINE NEGATIVE (NEGATIVE); *BARBITURATES SCREEN URINE NEGATIVE (NEGATIVE); *BENZODIAZEPINES SCREEN URINE NEGATIVE (NEGATIVE); *COCAINE SCREEN URINE NEGATIVE (NEGATIVE); CANNABINOID URINE SCREEN NEGATIVE (NEGATIVE); OPIATES URINE SCREEN PRESUMTIVE POSITIVE (NEGATIVE); PHENCYCLIDINE URINE SCREEN NEGATIVE (NEGATIVE)
[2020-02-15 23:00] VITALS: BP 175/70
[2020-02-16] VITALS: BP_SYST 167; BP_SYST 175; BP_DIAS 68; BP_DIAS 70
[2020-02-16] MEDS ORDERED: ACETAMINOPHEN WITH CODEINE 300/30MG TABLET PO PRN (01:45)
[2020-02-16 04:00] VITALS: BP 162/62
[2020-02-16 08:00] VITALS: BP 161/59
[2020-02-16] MEDS: FLUTICASONE PROPIONATE 50MCG/SPRAY BOTTLE BOTHNSTRLS SCH (08:35)
[2020-02-16] MEDS: ALLOPURINOL 100 MG TABLET PO SCH (08:35)
[2020-02-16] MEDS: FERROUS SULFATE 325MG TABLET PO SCH ×3 (08:35→17:32)
[2020-02-16] MEDS: ASCORBIC ACID 500 MG TABLET PO SCH ×2 (08:36→20:51)
[2020-02-16] MEDS: FUROSEMIDE 20MG TABLET PO SCH ×2 (08:36→20:51)
[2020-02-16] MEDS: DOCUSATE SODIUM 100MG CAPSULE PO SCH (08:36)
[2020-02-16] MEDS: NIFEDIPINE XL 30MG TAB PO SCH (08:36)
[2020-02-16] MEDS ORDERED: LISINOPRIL 10MG TABLET PO SCH (09:00)
[2020-02-16] MEDS ORDERED: CLONIDINE 0.1MG TABLET PO PRN (10:45)
[2020-02-16] MEDS ORDERED: HYDRALAZINE 20MG/ML VIAL IV PRN (10:45)
[2020-02-16 12:00] VITALS: BP 144/57
[2020-02-16 16:00] VITALS: BP 148/60
[2020-02-16 20:00] VITALS: BP 142/54
[2020-02-16] MEDS: FLUTICASONE/VILANTEROL 200-25 BLST.W.DEV ORI SCH (20:35)
[2020-02-16] MEDS: TERAZOSIN HCL 5MG CAPSULE PO SCH (20:50)
[2020-02-16] MEDS: FAMOTIDINE 20MG TABLET PO SCH (20:51)
[2020-02-16] MEDS: LISINOPRIL 10MG TABLET PO SCH (20:51)
[2020-02-17] VITALS: BP 142/54
[2020-02-17 06:27] LABS: BASOPHILS % 1.1 % (0.0-2.0); EOSINOPHILS % 1.8 % (0.0-5.0); HEMATOCRIT. 44.5 % (42.0-52.0); HEMOGLOBIN. 14.5 g/dL (14.0-18.0); LYMPHOCYTES % 10.1 % (20.0-50.0); MEAN CORPUSCULAR HEMOGLOBIN 27.3 pg (28.0-32.0); MEAN CORPUSCULAR VOLUME 83.5 fL (80.0-94.0); MEAN PLATELET VOLUME 7.7 fl (7.4-10.4); MONOCYTES % 7.5 % (2.0-8.0); NEUTROPHILS % 79.5 % (40.0-76.0); PLATELET 213 x1000/uL (130-400); RED BLOOD CELL COUNT 5.33 mill/uL (4.7-6.1); RED CELL DISTRIBUTION WIDTH 18.7 % (11.6-14.6)
[2020-02-17 07:02] LABS: CHLORIDE 105 mEq/L (98-107)
[2020-02-17 07:14] LABS: CREATINE KINASE 107 IU/L (39-308)
[2020-02-17 07:16] LABS: CREATINE KINASE MB FRACTION 1.7 ng/mL (0.5-3.6)
[2020-02-17 08:00] VITALS: BP 126/73
[2020-02-17] MEDS: DOCUSATE SODIUM 100MG CAPSULE PO SCH (08:14)
[2020-02-17] MEDS: FERROUS SULFATE 325MG TABLET PO SCH ×3 (08:14→17:53)
[2020-02-17] MEDS: FLUTICASONE/VILANTEROL 200-25 BLST.W.DEV ORI SCH (08:15)
[2020-02-17] MEDS: LISINOPRIL 10MG TABLET PO SCH ×2 (08:15→21:09)
[2020-02-17] MEDS: FUROSEMIDE 20MG TABLET PO SCH ×2 (08:15→21:09)
[2020-02-17] MEDS: ASCORBIC ACID 500 MG TABLET PO SCH ×2 (08:15→21:09)
[2020-02-17] MEDS: NIFEDIPINE XL 30MG TAB PO SCH (08:15)
[2020-02-17] MEDS: FLUTICASONE PROPIONATE 50MCG/SPRAY BOTTLE BOTHNSTRLS SCH (08:15)
[2020-02-17] MEDS: ALLOPURINOL 100 MG TABLET PO SCH (08:15)
[2020-02-17 12:00] VITALS: BP 132/76
[2020-02-17 16:00] VITALS: BP 130/77
[2020-02-17 20:00] VITALS: BP 131/62
[2020-02-17] MEDS: FAMOTIDINE 20MG TABLET PO SCH (21:00)
[2020-02-17] MEDS: TERAZOSIN HCL 5MG CAPSULE PO SCH (21:10)
[2020-02-18] VITALS: BP 130/55
[2020-02-18 04:00] VITALS: BP 142/52
[2020-02-18] MEDS: FERROUS SULFATE 325MG TABLET PO SCH ×2 (07:48→12:51)
[2020-02-18 08:00] VITALS: BP 135/72
[2020-02-18] MEDS: DOCUSATE SODIUM 100MG CAPSULE PO SCH (09:57)
[2020-02-18] MEDS: ASCORBIC ACID 500 MG TABLET PO SCH (09:58)
[2020-02-18] MEDS: ALLOPURINOL 100 MG TABLET PO SCH (09:58)
[2020-02-18] MEDS: FLUTICASONE PROPIONATE 50MCG/SPRAY BOTTLE BOTHNSTRLS SCH (09:58)
[2020-02-18] MEDS: LISINOPRIL 10MG TABLET PO SCH (09:58)
[2020-02-18] MEDS: FUROSEMIDE 20MG TABLET PO SCH (09:58)
[2020-02-18] MEDS: FLUTICASONE/VILANTEROL 200-25 BLST.W.DEV ORI SCH (09:59)
[2020-02-18] MEDS: NIFEDIPINE XL 30MG TAB PO SCH (09:59)
[2020-02-18 12:00] VITALS: BP 135/64
[2020-02-18] MEDS ORDERED: LOSARTAN POTASSIUM 25 MG TABLET PO SCH (14:00)
[2020-02-18 14:46] VITALS: BP 135/64
== END 2020-02-18 17:00 | disposition home or self-care (01) | DRG 292 ==
LOC: ER 12:15 → 5WST 14:11 → ENRESERV 20:58
PROVIDERS: ADMIT Internal Medicine Pulmonary Disease; ATTEND Internal Medicine Pulmonary Disease
DX: I13.0 Hypertensive heart and chronic kidney disease with heart failure and stage 1 through stage 4 chronic kidney disease, or unspecified chronic kidney disease (principal); I50.32 Chronic diastolic (congestive) heart failure; I48.20 Chronic atrial fibrillation, unspecified; J98.11 Atelectasis; K92.2 Gastrointestinal hemorrhage, unspecified; I47.2 Ventricular tachycardia; I42.8 Other cardiomyopathies; I27.20 Pulmonary hypertension, unspecified; I87.8 Other specified disorders of veins; I34.0 Nonrheumatic mitral (valve) insufficiency; I87.2 Venous insufficiency (chronic) (peripheral); J44.9 Chronic obstructive pulmonary disease, unspecified; M10.9 Gout, unspecified; K21.9 Gastro-esophageal reflux disease without esophagitis; N18.3 Chronic kidney disease, stage 3 (moderate); N40.0 Benign prostatic hyperplasia without lower urinary tract symptoms; Z87.891 Personal history of nicotine dependence; Z95.0 Presence of cardiac pacemaker; Z89.231 Acquired absence of right shoulder; Z79.899 Other long term (current) drug therapy; Z90.49 Acquired absence of other specified parts of digestive tract; Z86.010 Personal history of colon polyps; Z80.8 Family history of malignant neoplasm of other organs or systems
CPT/HCPCS: 36415; 71045; 80048; 80053; 80305; 82550; 82553; 83605; 83735; 83880; 84484; 85025; 93005; 93306; 93970; 96374; 99285; J1940

== ENCOUNTER 2020-07-12 10:47 | Inpatient (IN) | payer MEDICARE, MEDICAID ==
[~2020-07-12] VITALS: Ht 182.9 cm; Wt 97.6 kg
[~2020-07-12 10:47] MED LIST changes: -LISI10TA5 PO
[2020-07-12] MEDS ORDERED: CEFTRIAXONE 1 G PREMIX 50 ML IV ONE (11:00)
[2020-07-12] MEDS ORDERED: AZITHROMYCIN 500 MG in DEXT 5% WATER 250 ML IV ONE (11:00)
[2020-07-12] MEDS ORDERED: DEXAMETHASONE 10 MG/ML VIAL IV ONE (11:00)
[2020-07-12 11:47] LABS: BASOPHILS % 1.2 % (0.0-2.0); HEMATOCRIT. 29.6 % (42.0-52.0); HEMOGLOBIN. 9.6 g/dL (14.0-18.0); LYMPHOCYTES % 8.4 % (20.0-50.0); MEAN CORPUSCULAR HEMOGLOBIN 29.8 pg (28.0-32.0); MEAN CORPUSCULAR VOLUME 92.2 fL (80.0-94.0); MEAN PLATELET VOLUME 8.6 fl (7.4-10.4); MONOCYTES % 6.8 % (2.0-8.0); NEUTROPHILS % 83.6 % (40.0-76.0); PLATELET 143 x1000/uL (130-400); RED BLOOD CELL COUNT 3.21 mill/uL (4.7-6.1); RED CELL DISTRIBUTION WIDTH 18.8 % (11.6-14.6)
[2020-07-12 11:53] LABS: CHLORIDE 114 mEq/L (98-107)
[2020-07-12 12:03] LABS: CREATINE KINASE 317 IU/L (39-308)
[2020-07-12 12:19] LABS: D-DIMER 1.11 mg/L FEU (<0.50); INR 1.3; PROTHROMBIN TIME 13.3 sec (9.6-11.0)
[2020-07-12 12:28] LABS: BG BASE EXCESS 0.4 mmol/L (-2.0-2.0); BG CARBOXYHEMOGLOBIN 0.3 % (0.5-1.5); BG DEOXYHEMOGLOBIN 3.7 % (0.0-5.0); BG METHEMOGLOBIN 0.2 % (0.0-1.5); BG OXYGEN SATURATION 96.3 % (92.0-98.5); BG OXYHEMOGLOBIN 95.8 % (94.0-97.0); BG PCO2 46.4 mmHg (35.0-45.0); BG PH 7.367 (7.350-7.450); BG SAMPLE SITE LEFT RADIAL; BG TOTAL HEMOGLOBIN 10.6 g/dL (12.0-18.0); BG VENT MODE MASK - NRB
[2020-07-12] MEDS ORDERED: SODIUM BICARBONATE 8.4% 1 MEQ/ML 50ML SYR IV ONE (12:30)
[2020-07-12] MEDS ORDERED: INSULIN REGULAR (HUMULIN R) 300UNITS/3ML VIAL IV ONE (12:30)
[2020-07-12] MEDS ORDERED: CALCIUM CHLORIDE 1GM/10ML SYR IV ONE (12:30)
[2020-07-12] MEDS ORDERED: DEXTROSE 50% WATER 50ML SYRINGE IV ONE (12:30)
[2020-07-12] MEDS: LOSARTAN POTASSIUM 25 MG TABLET PO SCH (15:26)
[2020-07-12] MEDS: ASPIRIN 81MG TABLET PO SCH (15:26)
[2020-07-12] MEDS ORDERED: ENOXAPARIN 150MG/ML SYR SUBCUT SCH (16:00)
[2020-07-12] MEDS: ENOXAPARIN 100MG/ML SYR SUBCUT SCH (16:34)
[2020-07-12] MEDS: ENOXAPARIN 30MG/0.3ML SYR SUBCUT SCH (16:34)
[2020-07-12] MEDS: DILTIAZEM HCL 30MG TABLET PO SCH (21:32)
[2020-07-13] MEDS: IPRATROPIUM/ALBUTEROL 0.5-3(2.5)MG/3ML NEB HHN SCH ×5 (00:20→22:06)
[2020-07-13] MEDS ORDERED: LORAZEPAM 2MG/ML CPJ IV ONE (03:30)
[2020-07-13 04:12] LABS: BG BASE EXCESS -2.8 mmol/L (-2.0-2.0); BG CARBOXYHEMOGLOBIN 0.3 % (0.5-1.5); BG FRACTION INSPIRED OXYGEN 100; BG HCO3 ACT 24.9 mmol/L (22.0-26.0); BG METHEMOGLOBIN 1.1 % (0.0-1.5); BG OXYHEMOGLOBIN 96.6 % (94.0-97.0); BG PCO2 57.9 mmHg (35.0-45.0); BG PH 7.252 (7.350-7.450); BG PO2 134.1 mmHg (75.0-100.0); BG SAMPLE SITE LEFT BRACHIAL; BG TOTAL HEMOGLOBIN 10.7 g/dL (12.0-18.0); BG VENT MODE MASK - NRB
[2020-07-13] MEDS: LORAZEPAM 2MG/ML CPJ IV PRN (05:07)
[2020-07-13] MEDS: DILTIAZEM HCL 30MG TABLET PO SCH ×4 (06:00→23:42)
[2020-07-13 07:16] LABS: BASOPHILS % 0.5 % (0.0-2.0); HEMATOCRIT. 30.8 % (42.0-52.0); HEMOGLOBIN. 9.9 g/dL (14.0-18.0); LYMPHOCYTES % 7.2 % (20.0-50.0); MEAN CORPUSCULAR HEMOGLOBIN 30.1 pg (28.0-32.0); MEAN CORPUSCULAR VOLUME 93.1 fL (80.0-94.0); MEAN PLATELET VOLUME 8.3 fl (7.4-10.4); MONOCYTES % 7.4 % (2.0-8.0); NEUTROPHILS % 84.9 % (40.0-76.0); PLATELET 111 x1000/uL (130-400); RED BLOOD CELL COUNT 3.31 mill/uL (4.7-6.1); RED CELL DISTRIBUTION WIDTH 18.8 % (11.6-14.6)
[2020-07-13 08:29] LABS: BG BASE EXCESS -1.7 mmol/L (-2.0-2.0); BG CARBOXYHEMOGLOBIN 0.3 % (0.5-1.5); BG DEOXYHEMOGLOBIN 0.5 % (0.0-5.0); BG HCO3 ACT 26.2 mmol/L (22.0-26.0); BG METHEMOGLOBIN 0.3 % (0.0-1.5); BG OXYGEN SATURATION 99.5 % (92.0-98.5); BG OXYHEMOGLOBIN 98.9 % (94.0-97.0); BG PH 7.251 (7.350-7.450); BG PO2 381.1 mmHg (75.0-100.0); BG SAMPLE SITE LEFT RADIAL; BG TOTAL HEMOGLOBIN 10.3 g/dL (12.0-18.0); BG VENT MODE MASK - BIPAP
[2020-07-13] MEDS: LOSARTAN POTASSIUM 25 MG TABLET PO SCH (09:00)
[2020-07-13] MEDS: ASPIRIN 81MG TABLET PO SCH (09:00)
[2020-07-13] MEDS ORDERED: PIPERACILLIN/TAZOBACTAM 3.375 G in DEXT 5% WATER 100 ML IV SCH (11:00)
[2020-07-13] MEDS ORDERED: VANCOMYCIN 1500MG in DEXTROSE 5% WATER 250ML IV SCH (13:00)
[2020-07-13 13:41] LABS: BG BASE EXCESS -2.6 mmol/L (-2.0-2.0); BG CARBOXYHEMOGLOBIN 0.9 % (0.5-1.5); BG DEOXYHEMOGLOBIN 5.1 % (0.0-5.0); BG HCO3 ACT 24.5 mmol/L (22.0-26.0); BG METHEMOGLOBIN 0.2 % (0.0-1.5); BG OXYGEN SATURATION 94.8 % (92.0-98.5); BG OXYHEMOGLOBIN 93.8 % (94.0-97.0); BG PCO2 52.1 mmHg (35.0-45.0); BG PO2 77.5 mmHg (75.0-100.0); BG SAMPLE SITE LEFT RADIAL; BG TOTAL HEMOGLOBIN 12.6 g/dL (12.0-18.0); BG VENT MODE MASK - BIPAP
[2020-07-13] MEDS ORDERED: DEXTROSE 5% WATER 1,000 ML IV ONE (14:00)
[2020-07-13] MEDS: DEXAMETHASONE 10 MG/ML VIAL IV SCH (14:26)
[2020-07-13] MEDS: ENOXAPARIN 100MG/ML SYR SUBCUT SCH (16:25)
[2020-07-13] MEDS: ENOXAPARIN 30MG/0.3ML SYR SUBCUT SCH (16:25)
[2020-07-13] MEDS ORDERED: FAMOTIDINE 20MG/2ML VIAL IV SCH (21:00)
[2020-07-13] MEDS ORDERED: PIPERACILLIN/TAZ 3.375G PREMIX 50 ML IV SCH (22:00)
[2020-07-13] MEDS ORDERED: ZINC SULFATE 220 MG ( 50 ) CAPSULE PO NR (22:15)
[2020-07-13] MEDS: ASCORBIC ACID 500 MG TABLET PO SCH (23:00)
[2020-07-13] MEDS ORDERED: ERGOCALCIFEROL 50000UNITS CAPSULE PO SCH (23:00)
[2020-07-13] MEDS: FAMOTIDINE 20MG/2ML VIAL IV SCH (23:21)
[2020-07-14] MEDS: IPRATROPIUM/ALBUTEROL 0.5-3(2.5)MG/3ML NEB HHN SCH ×2 (03:25→10:30)
[2020-07-14 06:58] LABS: HEMATOCRIT. 30.1 % (42.0-52.0); HEMOGLOBIN. 9.6 g/dL (14.0-18.0); MEAN CORPUSCULAR HEMOGLOBIN 29.5 pg (28.0-32.0); MEAN CORPUSCULAR VOLUME 92.9 fL (80.0-94.0); MEAN PLATELET VOLUME 8.3 fl (7.4-10.4); PLATELET 103 x1000/uL (130-400); RED BLOOD CELL COUNT 3.24 mill/uL (4.7-6.1)
[2020-07-14] MEDS ORDERED: FAMOTIDINE 20MG/2ML VIAL IV SCH (09:00)
[2020-07-14 09:30] LABS: PLATELET ESTIMATE SLIGHTLY DECREASED
[2020-07-14 10:28] LABS: BG BASE EXCESS -1.2 mmol/L (-2.0-2.0); BG CARBOXYHEMOGLOBIN 0.2 % (0.5-1.5); BG DEOXYHEMOGLOBIN 1.3 % (0.0-5.0); BG FRACTION INSPIRED OXYGEN 60; BG HCO3 ACT 24.6 mmol/L (22.0-26.0); BG METHEMOGLOBIN 0.1 % (0.0-1.5); BG OXYGEN SATURATION 98.7 % (92.0-98.5); BG OXYHEMOGLOBIN 98.4 % (94.0-97.0); BG PCO2 46.2 mmHg (35.0-45.0); BG PH 7.345 (7.350-7.450); BG PO2 138.7 mmHg (75.0-100.0); BG SAMPLE SITE LEFT RADIAL; BG TOTAL HEMOGLOBIN 10.2 g/dL (12.0-18.0); BG TOTAL RESPIRATORY RATE 21 b/min; BG VENT MODE MASK - BIPAP
[2020-07-14] MEDS ORDERED: VANCOMYCIN 1250MG in DEXTROSE 5% WATER 250ML IV NR (10:30)
[2020-07-14 10:40] VITALS: BP 122/47
[2020-07-14] MEDS: LOSARTAN POTASSIUM 50 MG TABLET PO SCH (11:37)
[2020-07-14] MEDS: ASCORBIC ACID 500 MG TABLET PO SCH ×2 (11:37→22:49)
[2020-07-14] MEDS: ALLOPURINOL 100 MG TABLET PO SCH (11:37)
[2020-07-14] MEDS: ASPIRIN 81MG TABLET PO SCH (11:37)
[2020-07-14] MEDS: ZINC SULFATE 220 MG ( 50 ) CAPSULE PO SCH (11:38)
[2020-07-14] MEDS: DEXAMETHASONE 10 MG/ML VIAL IV SCH (11:38)
[2020-07-14 12:00] VITALS: BP 122/51
[2020-07-14] MEDS ORDERED: FERROUS SULFATE 325MG TABLET PO SCH (12:00)
[2020-07-14] MEDS: FERROUS SULFATE 325MG TABLET PO SCH ×2 (14:36→17:46)
[2020-07-14] MEDS: PIPERACILLIN/TAZOBACTAM 2.25 G in DEXTROSE 5% WATER 50 ML IV SCH ×2 (14:36→17:46)
[2020-07-14 16:00] VITALS: BP_SYST 122; BP_SYST 197; BP_DIAS 140; BP_DIAS 70
[2020-07-14] MEDS ORDERED: CLONIDINE 0.1MG TABLET PO PRN (17:30)
[2020-07-14 18:42] VITALS: BP 125/53
[2020-07-14] MEDS ORDERED: FURO80TA3 MT (19:33)
[2020-07-14 20:00] VITALS: BP 145/110
[2020-07-14] MEDS ORDERED: TERAZOSIN HCL 5MG CAPSULE PO SCH (21:00)
[2020-07-14] MEDS: FAMOTIDINE 20MG/2ML VIAL IV SCH (22:49)
[2020-07-14] MEDS: AMLODIPINE 2.5MG TABLET PO SCH (22:50)
[2020-07-14] MEDS: LORAZEPAM 2MG/ML CPJ IV PRN (23:06)
[2020-07-15] VITALS: BP 140/71
[2020-07-15] MEDS ORDERED: TERAZOSIN HCL 5MG CAPSULE PO SCH ×2 (01:00→21:00)
[2020-07-15] MEDS: PIPERACILLIN/TAZOBACTAM 2.25 G in DEXTROSE 5% WATER 50 ML IV SCH ×3 (01:36→12:00)
[2020-07-15 04:00] VITALS: BP 123/65
[2020-07-15 08:00] VITALS: BP 135/26
[2020-07-15] MEDS: FERROUS SULFATE 325MG TABLET PO SCH ×2 (08:10→13:10)
[2020-07-15] MEDS: AMLODIPINE 2.5MG TABLET PO SCH (09:00)
[2020-07-15] MEDS: ASPIRIN 81MG TABLET PO SCH (09:00)
[2020-07-15] MEDS: LOSARTAN POTASSIUM 50 MG TABLET PO SCH (09:00)
[2020-07-15] MEDS: ENOXAPARIN 30MG/0.3ML SYR SUBCUT SCH (09:00)
[2020-07-15] MEDS: ASCORBIC ACID 500 MG TABLET PO SCH (09:00)
[2020-07-15] MEDS: DEXAMETHASONE 10 MG/ML VIAL IV SCH (09:00)
[2020-07-15] MEDS: ALLOPURINOL 100 MG TABLET PO SCH (09:00)
[2020-07-15] MEDS: ZINC SULFATE 220 MG ( 50 ) CAPSULE PO SCH (09:00)
[2020-07-15] MEDS ORDERED: EPOETIN ALFA 10000UNITS/ML VIAL SUBCUT ONE (09:30)
[2020-07-15] MEDS ORDERED: EPOETIN ALFA-EPBX 10,000 UNIT/ML VIAL SUBCUT NR (11:00)
[2020-07-15 11:43] LABS: BG BASE EXCESS -2.4 mmol/L (-2.0-2.0); BG CARBOXYHEMOGLOBIN 0.5 % (0.5-1.5); BG FRACTION INSPIRED OXYGEN 60; BG HCO3 ACT 23.6 mmol/L (22.0-26.0); BG METHEMOGLOBIN 0.1 % (0.0-1.5); BG OXYHEMOGLOBIN 91.4 % (94.0-97.0); BG PCO2 46.2 mmHg (35.0-45.0); BG PH 7.327 (7.350-7.450); BG PO2 68.1 mmHg (75.0-100.0); BG SAMPLE SITE LEFT RADIAL; BG TOTAL HEMOGLOBIN 10.8 g/dL (12.0-18.0); BG VENT MODE MASK - BIPAP
[2020-07-15 12:00] VITALS: BP 118/47
[2020-07-15] MEDS: CALCIUM ACETATE 667MG CAPSULE PO SCH (13:10)
[2020-07-15 16:00] VITALS: BP 155/44
[2020-07-15 20:00] VITALS: BP 125/47
[2020-07-15 20:58] LABS: BG BASE EXCESS -5.7 mmol/L (-2.0-2.0); BG CARBOXYHEMOGLOBIN 0.6 % (0.5-1.5); BG DEOXYHEMOGLOBIN 26.9 % (0.0-5.0); BG FRACTION INSPIRED OXYGEN 50; BG HCO3 ACT 20.3 mmol/L (22.0-26.0); BG METHEMOGLOBIN 0.3 % (0.0-1.5); BG OXYGEN SATURATION 72.9 % (92.0-98.5); BG OXYHEMOGLOBIN 72.2 % (94.0-97.0); BG PCO2 42.1 mmHg (35.0-45.0); BG PH 7.302 (7.350-7.450); BG TOTAL HEMOGLOBIN 9.4 g/dL (12.0-18.0); BG VENT MODE MASK - VENTI
[2020-07-16] VITALS: BP 134/61
[2020-07-16] MEDS: IPRATROPIUM/ALBUTEROL 0.5-3(2.5)MG/3ML NEB HHN SCH ×2 (01:57→20:35)
[2020-07-16 04:00] VITALS: BP 133/70
[2020-07-16] MEDS ORDERED: CALCITRIOL 0.25MCG CAPSULE PO SCH (09:00)
[2020-07-16] MEDS: DEXAMETHASONE 10 MG/ML VIAL IV SCH (09:00)
[2020-07-16 09:19] LABS: HEMOGLOBIN. 8.4 g/dL (14.0-18.0); MEAN CORPUSCULAR HEMOGLOBIN 29.1 pg (28.0-32.0); MEAN CORPUSCULAR VOLUME 93.4 fL (80.0-94.0); MEAN PLATELET VOLUME 10.9 fl (7.4-10.4); PLATELET 85 x1000/uL (130-400); RED BLOOD CELL COUNT 2.89 mill/uL (4.7-6.1); RED CELL DISTRIBUTION WIDTH 19.2 % (11.6-14.6)
[2020-07-16 09:34] LABS: PHOSPHORUS 5.1 mg/dL (2.5-4.9)
[2020-07-16] MEDS: LOSARTAN POTASSIUM 50 MG TABLET PO SCH (09:38)
[2020-07-16] MEDS: ZINC SULFATE 220 MG ( 50 ) CAPSULE PO SCH (09:38)
[2020-07-16] MEDS: ASPIRIN 81MG TABLET PO SCH (09:39)
[2020-07-16] MEDS: ENOXAPARIN 30MG/0.3ML SYR SUBCUT SCH (09:39)
[2020-07-16] MEDS: ALLOPURINOL 100 MG TABLET PO SCH (09:40)
[2020-07-16] MEDS: FERROUS SULFATE 325MG TABLET PO SCH ×2 (10:04→13:27)
[2020-07-16] MEDS: CALCIUM ACETATE 667MG CAPSULE PO SCH ×2 (10:04→13:27)
[2020-07-16] MEDS: AMLODIPINE 2.5MG TABLET PO SCH (10:05)
[2020-07-16] MEDS: ASCORBIC ACID 500 MG TABLET PO SCH (10:05)
[2020-07-16 12:00] VITALS: BP 142/75
[2020-07-16] MEDS ORDERED: DEXTROSE 5% WATER 1,000 ML IV SCH (12:15)
[2020-07-16 12:23] LABS: BG BASE EXCESS -5.1 mmol/L (-2.0-2.0); BG CARBOXYHEMOGLOBIN 0.8 % (0.5-1.5); BG DEOXYHEMOGLOBIN 11.4 % (0.0-5.0); BG FRACTION INSPIRED OXYGEN 60; BG HCO3 ACT 20.5 mmol/L (22.0-26.0); BG METHEMOGLOBIN 0.1 % (0.0-1.5); BG OXYGEN SATURATION 88.5 % (92.0-98.5); BG OXYHEMOGLOBIN 87.7 % (94.0-97.0); BG PCO2 40.2 mmHg (35.0-45.0); BG PH 7.326 (7.350-7.450); BG PO2 63.3 mmHg (75.0-100.0); BG SAMPLE SITE LEFT RADIAL; BG TOTAL HEMOGLOBIN 8.6 g/dL (12.0-18.0); BG TOTAL RESPIRATORY RATE 23 b/min; BG VENT MODE MASK - BIPAP
[2020-07-16] MEDS ORDERED: VANCOMYCIN 1250MG in DEXTROSE 5% WATER 250ML IV SCH (13:00)
[2020-07-16 13:28] LABS: NUCLEATED RED BLOOD CELLS 1 /100 WBC; PLATELET ESTIMATE DECREASED
[2020-07-16] MEDS ORDERED: SODIUM POLYSTYRENE SULFONATE 15 G/60 ML BOT PO NR (17:00)
[2020-07-16 20:00] VITALS: BP 134/61
[2020-07-16] MEDS ORDERED: INSULIN REGULAR (HUMULIN R) 300UNITS/3ML VIAL SUBCUT NR (22:45)
[2020-07-16] MEDS ORDERED: SODIUM BICARBONATE 8.4% 1 MEQ/ML 50ML SYR IV NR (22:45)
[2020-07-16] MEDS ORDERED: DEXTROSE 50% WATER 50ML SYRINGE IV NR (22:45)
[2020-07-16] MEDS ORDERED: NOREPINEPHRINE 32 MG in DEXT 5% WATER 218 ML IV PRN (23:45)
[2020-07-17] MEDS ORDERED: SODIUM POLYSTYRENE SULFONATE 15 G/60 ML BOT PO NR (01:00)
[2020-07-17] MEDS ORDERED: PHENYLEPHRINE 100 MG in DEXT 5% WATER 240 ML IV PRN (01:00)
[2020-07-17] MEDS ORDERED: HYDRALAZINE HCL 25MG TABLET PO SCH (06:00)
== END 2020-07-17 00:28 | disposition expired | DRG 208 ==
LOC: ER 11:02 → 7WST 07-13 12:30 → ENRESERV 07-14 09:22 → 7WST 07-14 10:54
PROVIDERS: ADMIT Internal Medicine Pulmonary Disease; ATTEND Internal Medicine Pulmonary Disease
PROC: 5A09457 Assistance with Respiratory Ventilation, 24-96 Consecutive Hours, Continuous Positive Airway Pressure (ICD-10-PCS; principal; 2020-07-13)
PROC: 06HY33Z Insertion of Infusion Device into Lower Vein, Percutaneous Approach (ICD-10-PCS; 2020-07-13)
PROC: B54CZZA Ultrasonography of Left Lower Extremity Veins, Guidance (ICD-10-PCS; 2020-07-13)
PROC: 5A1935Z Respiratory Ventilation, Less than 24 Consecutive Hours (ICD-10-PCS; 2020-07-16)
PROC: 0BH18EZ Insertion of Endotracheal Airway into Trachea, Via Natural or Artificial Opening Endoscopic (ICD-10-PCS; 2020-07-16)
PROC: 5A12012 Performance of Cardiac Output, Single, Manual (ICD-10-PCS; 2020-07-17)
DX: U07.1 COVID-19 (principal); J96.01 Acute respiratory failure with hypoxia; J12.82 Pneumonia due to coronavirus disease 2019; J96.02 Acute respiratory failure with hypercapnia; N17.9 Acute kidney failure, unspecified; E87.0 Hyperosmolality and hypernatremia; I13.0 Hypertensive heart and chronic kidney disease with heart failure and stage 1 through stage 4 chronic kidney disease, or unspecified chronic kidney disease; I42.9 Cardiomyopathy, unspecified; I48.20 Chronic atrial fibrillation, unspecified; J44.0 Chronic obstructive pulmonary disease with (acute) lower respiratory infection; J44.1 Chronic obstructive pulmonary disease with (acute) exacerbation; K92.2 Gastrointestinal hemorrhage, unspecified; I50.32 Chronic diastolic (congestive) heart failure; N18.30 Chronic kidney disease, stage 3 unspecified; D12.6 Benign neoplasm of colon, unspecified; G47.33 Obstructive sleep apnea (adult) (pediatric); I27.21 Secondary pulmonary arterial hypertension; I27.81 Cor pulmonale (chronic); J30.1 Allergic rhinitis due to pollen; K21.9 Gastro-esophageal reflux disease without esophagitis; Z51.5 Encounter for palliative care; E87.5 Hyperkalemia; Z66 Do not resuscitate; M10.9 Gout, unspecified; D50.9 Iron deficiency anemia, unspecified; D69.6 Thrombocytopenia, unspecified; E83.51 Hypocalcemia; I48.91 Unspecified atrial fibrillation; I46.9 Cardiac arrest, cause unspecified; I27.20 Pulmonary hypertension, unspecified; Z53.20 Procedure and treatment not carried out because of patient's decision for unspecified reasons; Z79.01 Long term (current) use of anticoagulants; Z87.891 Personal history of nicotine dependence; Z95.810 Presence of automatic (implantable) cardiac defibrillator; Z79.899 Other long term (current) drug therapy; Z89.201 Acquired absence of right upper limb, unspecified level; Z90.89 Acquired absence of other organs; Z90.49 Acquired absence of other specified parts of digestive tract; Z86.010 Personal history of colon polyps; Z86.711 Personal history of pulmonary embolism; Z82.41 Family history of sudden cardiac death; Z82.49 Family history of ischemic heart disease and other diseases of the circulatory system
CPT/HCPCS: 36415; 36600; 71045; 80048; 80053; 80202; 82140; 82375; 82550; 82728; 82805; 82962; 83605; 83615; 83735; 83880; 83970; 84100; 84132; 84145; 84484; 85025; 85379; 85384; 86140; 86850; 86900; 87635; 93005; 99291; J0456; J0696; J0885; J1100; J1650; J1815; J2060; J2543; J3370; J3490; J7040; J7060; J7070